=== PATIENT | male | born 1990 | race Two or more races ===

== ENCOUNTER 2018-12-21 11:40 | Emergency (ER) | payer SELFPAY ==
[~2018-12-21] VITALS: Ht 175.3 cm; Wt 100.0 kg
[2018-12-21] MEDS ORDERED: TETANUS, DIPHTHERIA, PERTUSSIS VAC/PF 0.5ML (>7YR OLD) IM ONE (13:30)
[2018-12-21 14:19] VITALS: BP 148/79
== END 2018-12-21 14:19 | disposition home or self-care (01) ==
LOC: ER 11:40
DX: S50.862A Insect bite (nonvenomous) of left forearm, initial encounter (principal); W57.XXXA Bitten or stung by nonvenomous insect and other nonvenomous arthropods, initial encounter; Y93.89 Activity, other specified; Y92.018 Other place in single-family (private) house as the place of occurrence of the external cause
CPT/HCPCS: 90471; 90715; 99283